=== PATIENT | female | born 1960 | race Caucasian/White ===

== ENCOUNTER 2019-05-08 12:47 | Inpatient (IN) | payer OTHER ==
[2019-05-08 16:02] VITALS: BMI 38.2
--- NOTE | 2019-05-08 16:56 | HP ---
CIWA Score Nausea/Vomitin Muscle Tremors: 1-None Visible, but [place] Anxiety: 2 Agitation: 2 Paroxysmal Sweats: 1-Minimal Palms Moist Orientation: 0-Oriented Tacttile Disturbances: 0-None Auditory Disturbances: 1-Very Mild Visual Disturbances: 1-Very Mild Sensitivity Headache: 2-Mild CIWA-Ar Total Score: 13 - Admission Criteria OASAS Guidelines: Admission for Medically Managed Detox: Requires at least one of the followin. CIWA greater than 12 2. Seizures within the past 24 hours 3. Delirium tremens within the past 24 hours 4. Hallucinations within the past 24 hours 5. Acute intervention needed for co occurring medical disorder 6. Acute intervention needed for co occurring psychiatric disorder 7. Severe withdrawal that cannot be handled at a lower level of care (continued vomiting, continued diarrhea, abnormal vital signs) requiring intravenous medication and/or fluids 8. Admission ROS S - HPI Chief Complaint: EtOH detox Allergies/Adverse Reactions: Allergies Allergy/AdvReac Type Severity Reaction Status Date / Time No Known Allergies Allergy Verified 05/08/19 15:45 History of Present Illness: 59F w/ HTN, depression, GERD, intermittent mild asthma, hemorrhoids, cirrhosis, HepC(s/p [place] tx), EtOH since 11y/o presents to [facility] for Alcohol detox. Drinks 24beers daily. Last drink was early afternoon. LOU 0.258. Tried detox x5- 6, last detox ~1year prior lasting a few days. No history of seizures. Has passed out. Has had fecal incontinence for last few months. Lives with , children. 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 Social smoker Exam Limitations: No Limitations - Ebola screening Have you traveled outside of the country in the last 21 days: No Have you had contact with anyone from an Ebola affected area: No - Review of Systems EENT: denies: Blurred Vision, Double Vision Respiratory: denies: Cough, Orthopnea, Wheezing Cardiac: denies: Chest Pain, Irregular Heart Rate, Lightheadedness, Palpitations , Chest Tightness GI: reports: Diarrhea, Nausea. denies: Constipated, Difficulty Swallowing, Rectal Bleeding, Vomiting : reports: Incontinence (urgency) Musculoskeletal: reports: Back Pain, Other (Left knee) Neuro: reports: Headache Endocrine: denies: Excessive Sweating Patient History - Patient Medical History Hx Asthma: Yes Hx Cancer: No Hx Hypertension: Yes Hx Hepatitis C: Yes (s/p [place]) - Patient Surgical History Hx Cholecystectomy: Yes - Smoking Cessation Smoking history: Current some day smoker Have you smoked in the past 12 months: Yes Aproximately how many cigarettes per day: 1 (social) Initiated information on smoking cessation: No - Substances abused Alcohol Substance route: Oral Frequency: Daily Amount used: (6) 160z beer Age of first use: 11 Date of last use: 05/08/19 Family Disease History - Family Disease History Family Disease History: Diabetes: Father (kidney disease), Mother (kidney disease), [place]: Brother Admission Physical Exam S - Vital Signs Vital Signs: Vital Signs - 24 hr 05/08/19 05/08/19 15:53 16:19 Temperature 97.3 F L 97.3 F L Pulse Rate 97 H 97 H Respiratory 20 20 Rate Blood Pressure 158/89 158/89 - Physical General Appearance: Yes: Nourished. No: No Apparent Distress, Mild Distress, Intoxicated, Sweating HEENTM: Yes: Normal Voice. No: Pale Conjunctivae R, Pale Conjunctivae L, Scleral Ictenus R, Scleral Ictenus L Respiratory: Yes: Lungs Clear, Normal Breath Sounds. No: Chest Non-Tender, Labored Respiration, No Accessory Muscle Use, Accessory Muscle Use, Wheezing Neck: Yes: Supple, Trachea in good position Cardiology: Yes: Regular Rhythm, Regular Rate, S1, S2. No: Tachycardia, Irregularly Irregular Abdominal: Yes: Soft. No: Distended, Rebound, Tenderness Musculoskeletal: Yes: full range of Motion. No: Joint swelling Neurological: Yes: Fully Oriented, Normal Response Integumentary: Yes: Normal Color, Dry, Warm Breathalyzer - Breathalyzer Breathalyzer: 258 Urine Drug Screen - Test Device Lot number: [id number] Expiration date: 02/10/21 - Control Is test valid?: Yes - Results Drug screen NEGATIVE: Yes Inpatient Rehab Admission - Rehab Decision to Admit Inpatient rehab admission?: No
[2019-05-08] MEDS ORDERED: PROCHLORPERAZINE MALEATE 5 MG TABLET PO PRN (17:26)
[2019-05-08] MEDS ORDERED: MAGNESIUM HYDROX 2400MG/30ML ORAL SUSPENSION 30 ML CUP PO PRN (17:26)
[2019-05-08] MEDS ORDERED: hydrOXYzine PAMOATE 25 MG CAPSULE (FP) PO PRN (17:26)
[2019-05-08] MEDS ORDERED: MAGNESIUM CITRATE 300 ML BOTTLE PO PRN (17:26)
[2019-05-08] MEDS ORDERED: MENTHOL/PHENOL 1 EACH UD MM PRN (17:26)
[2019-05-08] MEDS ORDERED: ACETAMINOPHEN 325 MG TABLET (FP) PO PRN ×2 (17:26)
[2019-05-08] MEDS ORDERED: IBUPROFEN 400 MG TABLET (FP) PO PRN (17:26)
[2019-05-08] MEDS ORDERED: LORazepam 1 MG TABLET PO PRN (17:26)
[2019-05-08] MEDS ORDERED: MAG HYDROX/AL HYDROX/SIMETH 30 ML UNIT-DOSE CUP PO PRN (17:26)
[2019-05-08] MEDS ORDERED: BISMUTH SUBSALICYLATE 524 MG/30 ML UD PO PRN (17:26)
[2019-05-08] MEDS ORDERED: METHOCARBAMOL 500 MG TABLET PO PRN (17:26)
[2019-05-08] MEDS ORDERED: MELATONIN 5 MG TABLETS PO PRN (17:26)
[2019-05-08] MEDS ORDERED: ALBUTEROL SO4 8 GM HFA INHALER IH PRN (17:37)
--- NOTE | 2019-05-08 17:43 | PN ---
Teaching Attending Note Name of Resident: Thaddeus Vickers ATTENDING PHYSICIAN STATEMENT I saw and evaluated the patient. I reviewed the resident's note and discussed the case with the resident. I agree with the resident's findings and plan as documented. SUBJECTIVE: etoh withdrawal OBJECTIVE: etoh withdrawal ASSESSMENT AND PLAN: ativan taper
[2019-05-08] MEDS ORDERED: PANTOPRAZOLE 20 MG TABLET (FP) PO ONE (18:30)
[2019-05-08] MEDS: LORazepam 2 MG TABLET PO SCH ×2 (19:19→22:43)
[2019-05-08] MEDS: THIAMINE HCL 100 MG TABLET (FP) PO SCH (22:43)
[2019-05-09] MEDS: LORazepam 2 MG TABLET PO SCH ×4 (06:07→22:26)
--- NOTE | 2019-05-09 09:28 | CONSULT ---
[facility] Psychiatric Consult - Data Date of interview: 05/09/19 Admission source: [facility] Identifying data: Patient is a 59 year old female, mother of eight, domiciled, and currently employed. This is patient's first admission to detox. Patient admitted to detox for alcohol dependence. Substance Abuse History: - Smoking Cessation. Smoking history: Current some day smoker. Have you smoked in the past 12 months: Yes. Aproximately how many cigarettes per day: 1 (social). Initiated information on smoking cessation: No. - Substances abused. Alcohol. Substance route: Oral. Frequency: Daily. Amount used: (6) 160z beer. Age of first use: 11. Date of last use: Medical History: HTN, depression, GERD, intermittent mild asthma, hemorrhoids, cirrhosis, Hep C Psychiatric History: Patient denies h/o psychiatric hospitalization and denies suicde attempt. Patient's first psychiatric contact was in her 30's to address her history of depression and alcohol use disorder and was provided with a sleep aid and psychotherapy. She reports seeing multiple psychiatrist througout the years. She denies current outpatient psychiatric care. Ms. Amaya last saw a psychiatrist while in detox at [facility] and was prscribed trazodone. At present she reports feeling sad and is experiencing difficutly sleeping. Physical/Sexual Abuse/Trauma History: denies. Mental Status Exam - Mental Status Exam Alert and Oriented to: Time, Place, Person Cognitive Function: Good Patient Appearance: Well Groomed Mood: Sad Affect: Appropriate Patient Behavior: Crying (Tearful when discussing her family. ) Speech Pattern: Appropriate Voice Loudness: Normal Thought Process: Goal Oriented Thought Disorder: Not Present Hallucinations: Denies Suicidal Ideation: Denies Homicidal Ideation: Denies Insight/Judgement: Poor Sleep: Poorly Appetite: Fair Muscle strength/Tone: Normal Gait/Station: Normal Psychiatric Findings - Problem List ([place] 1, 2,3) (1) Alcohol dependence with withdrawal Current Visit: Yes Status: Acute (2) Alcohol-induced sleep disorder Current Visit: Yes Status: Acute - Initial Treatment Plan Initial Treatment Plan: Psychoeducation provided. Detoxification in progress. Will order Trazodone 50mg HS. Benefits and side effects discussed. Verbal consent given.
[2019-05-09] MEDS: PRENATAL VITAMINS W/ FOLIC ACID TABLET (FP) PO SCH (10:45)
[2019-05-09 11:50] LABS: HEMATOCRIT 37.6 % (32.4-45.2); HEMOGLOBIN 12.8 GM/dL (10.7-15.3); MCH 30.3 pg (25.7-33.7); MEAN CELL VOLUME 89.1 fl (80-96); MEAN PLT VOLUME 8.1 fl (7.5-11.1); RBC 4.22 M/mm3 (3.60-5.2); RDW 14.9 % (11.6-15.6)
--- NOTE | 2019-05-09 11:59 | PN ---
[facility] CIWA - CIWA Score Nausea/Vomitin-Mild Nausea/No Vomiting Muscle Tremors: 3 Anxiety: 3 Agitation: 3 Paroxysmal Sweats: 2 Orientation: 0-Oriented Tacttile Disturbances: 0-None Auditory Disturbances: 0-None Visual Disturbances: 0-None Headache: 0-None Present CIWA-Ar Total Score: 12 S Progress Note (SOAP) Subjective: 59 years old female admitted on 05/08/19 for alcohol withdrawal sx management doing well with ativan detox regimen less tremor mild anxiety c/o acid reflux discontinue motrin begin zantace 150 mg po bid Objective: 05/09/19 12:02 Vital Signs Temperature 98.7 F 05/09/19 09:21 Pulse Rate 106 H 05/09/19 09:21 Respiratory Rate 18 05/09/19 09:21 Blood Pressure 162/102 H 05/09/19 09:21 O2 Sat by Pulse Oximetry (%) 05/09/19 12:02 lab pending denies history of hypertension begin amlodipin 10 mg po daily Assessment: 05/09/19 12:03 alcohol withdrawal sx alert oriented x 3 speech clearly denies chest pain denies weakness of extremities Plan: continue ativan detox regimen zantac 150 mg po bid amlopidine 10 mg po daily
[2019-05-09] MEDS ORDERED: ONDANSETRON *ODT* 4 MG TABLET SL PRN (12:00)
[2019-05-09 12:27] LABS: ALBUMIN 3.1 g/dl (3.4-5.0); BILIRUBIN,TOTAL 0.8 mg/dL (0.2-1); BLOOD UREA NITROGEN 9.3 mg/dL (7-18); CALCIUM 8.4 mg/dL (8.5-10.1); CREATININE 0.6 mg/dL (0.55-1.3); POTASSIUM 3.7 mmol/L (3.5-5.1); TOT PROT 7.3 g/dl (6.4-8.2)
[2019-05-09] MEDS: amLODIPine BESYLATE 10 MG TABLET (FP) PO SCH (12:36)
[2019-05-09] MEDS: RANITIDINE HCL 150 MG TABLET (FP) PO SCH ×2 (12:36→22:26)
[2019-05-09 12:55] LABS: PLATELET COUNT 32 K/MM3 (134-434); WHITE BLOOD COUNT 1.8 K/mm3 (4.0-10.0)
[2019-05-09] MEDS: GABAPENTIN 100 MG CAPSULE (FP) PO SCH ×2 (14:04→22:25)
[2019-05-09] MEDS ORDERED: traZODone HCL 50 MG TABLET (FP) PO SCH (22:00)
[2019-05-09] MEDS: traZODone HCL 50 MG TABLET (FP) PO SCH (22:25)
[2019-05-09] MEDS: THIAMINE HCL 100 MG TABLET (FP) PO SCH (22:26)
[2019-05-10] MEDS: GABAPENTIN 100 MG CAPSULE (FP) PO SCH ×3 (05:49→21:25)
[2019-05-10] MEDS: LORazepam 1 MG TABLET PO SCH ×4 (05:49→22:10)
[2019-05-10] MEDS: PRENATAL VITAMINS W/ FOLIC ACID TABLET (FP) PO SCH (10:09)
[2019-05-10] MEDS: RANITIDINE HCL 150 MG TABLET (FP) PO SCH ×2 (10:09→21:25)
[2019-05-10] MEDS: amLODIPine BESYLATE 10 MG TABLET (FP) PO SCH (10:09)
[2019-05-10 10:15] LABS: HEMATOCRIT 38.1 % (32.4-45.2); HEMOGLOBIN 12.8 GM/dL (10.7-15.3); MCHC 33.6 g/dl (32.0-36.0); MEAN CELL VOLUME 89.3 fl (80-96); MEAN PLT VOLUME 8.4 fl (7.5-11.1); RBC 4.27 M/mm3 (3.60-5.2); RDW 14.4 % (11.6-15.6)
[2019-05-10 10:20] LABS: PLATELET COUNT 29 K/MM3 (134-434); WHITE BLOOD COUNT 1.8 K/mm3 (4.0-10.0)
--- NOTE | 2019-05-10 11:24 | PN ---
[facility] CIWA - CIWA Score Nausea/Vomitin-No Nausea/No Vomiting Muscle Tremors: 2 Anxiety: 3 Agitation: 2 Paroxysmal Sweats: 1-Minimal Palms Moist Orientation: 0-Oriented Tacttile Disturbances: 0-None Auditory Disturbances: 0-None Visual Disturbances: 0-None Headache: 0-None Present CIWA-Ar Total Score: 8 S Progress Note (SOAP) Subjective: doing well with ativan detox regimen long history of hepatitis c treated 2018 completed 3 months trail primary care provider in [place] appointment 05/16/19 for GI endoscopy due to "GERD" denies vomit blood but unpleasant acid regurgitation Objective: 05/10/19 11:24 Vital Signs Temperature 98.2 F 05/10/19 09:14 Pulse Rate 89 05/10/19 09:14 Respiratory Rate 18 05/10/19 09:14 Blood Pressure 151/98 05/10/19 09:14 O2 Sat by Pulse Oximetry (%) Laboratory Last Values long history of bp elevation non compliance with dietary and medication begin amlodipine and lisinorpil WBC 1.8 K/mm3 (4.0-10.0) L* 05/10/19 07:00 RBC 4.27 M/mm3 (3.60-5.2) 05/10/19 07:00 Hgb 12.8 GM/dL (10.7-15.3) 05/10/19 07:00 Hct 38.1 % (32.4-45.2) 05/10/19 07:00 MCV 89.3 fl (80-96) 05/10/19 07:00 MCH 30.0 pg (25.7-33.7) 05/10/19 07:00 MCHC 33.6 g/dl (32.0-36.0) 05/10/19 07:00 RDW 14.4 % (11.6-15.6) 05/10/19 07:00 Plt Count 29 K/MM3 (134-434) L* 05/10/19 07:00 MPV 8.4 fl (7.5-11.1) 05/10/19 07:00 Sodium 143 mmol/L (136-145) 05/09/19 07:30 Potassium 3.7 mmol/L (3.5-5.1) 05/09/19 07:30 Chloride 106 mmol/L (98-107) 05/09/19 07:30 Carbon Dioxide 28 mmol/L (21-32) 05/09/19 07:30 Anion Gap 9 MMOL/L (8-16) 05/09/19 07:30 BUN 9.3 mg/dL (7-18) 05/09/19 07:30 Creatinine 0.6 mg/dL (0.55-1.3) 05/09/19 07:30 Est GFR (CKD-EPI)AfAm 117.27 05/09/19 07:30 Est GFR (CKD-EPI)NonAf 101.18 05/09/19 07:30 Random Glucose 81 mg/dL (74-106) 05/09/19 07:30 Calcium 8.4 mg/dL (8.5-10.1) L 05/09/19 07:30 Total Bilirubin 0.8 mg/dL (0.2-1) 05/09/19 07:30 AST 88 U/L (15-37) H 05/09/19 07:30 ALT 59 U/L (13-61) 05/09/19 07:30 Alkaline Phosphatase 129 U/L (45-117) H 05/09/19 07:30 Total Protein 7.3 g/dl (6.4-8.2) 05/09/19 07:30 Albumin 3.1 g/dl (3.4-5.0) L 05/09/19 07:30 RPR Titer Nonreactive (NONREACTIVE) 05/09/19 07:30 lab noted 05/10/19 11:27 low wbc asymptomatic, no fever, no coughing, no vomiting blood by history, denies trouble urination, tolerate food and fluid well denies abdominal discomfort low plt discontinue motrin reporting long history of low plt "on and off" denies gum bleeding no bruises noted 05/10/19 11:28 Assessment: 05/10/19 11:30 alcohol withdrawal sx alert oriented x 3 CII-VIII grossly intact no trouble chewing food nor swallowing speech clearly ambulating from bed to bathroom steady gait denies dizziness Plan: continue ativan detox regimen
--- NOTE | 2019-05-10 12:14 | EKG ---
Test Reason : Blood Pressure : / mmHG Vent. Rate : 087 BPM Atrial Rate : 087 BPM P-R Int : 184 ms QRS Dur : 096 ms QT Int : 390 ms P-R-T Axes : 061 020 047 degrees QTc Int : 469 ms POOR DATA QUALITY, INTERPRETATION MAY BE ADVERSELY AFFECTED NORMAL SINUS RHYTHM NORMAL ECG NO PREVIOUS ECGS AVAILABLE Confirmed by RUBY BARKER MD ([id number]) on 05/10/2019 12:14:10 PM Referred By: BAKARI Confirmed By:RUBY BARKER MD
[2019-05-10] MEDS: LISINOPRIL 10 MG TABLET (FP) PO SCH (12:43)
[2019-05-10] MEDS: traZODone HCL 50 MG TABLET (FP) PO SCH (21:25)
[2019-05-10] MEDS: THIAMINE HCL 100 MG TABLET (FP) PO SCH (21:25)
[2019-05-11] MEDS ORDERED: LORazepam 0.5 MG TABLET PO PRN
[2019-05-11] MEDS: LORazepam 0.5 MG TABLET PO SCH ×4 (05:53→22:28)
[2019-05-11] MEDS: GABAPENTIN 100 MG CAPSULE (FP) PO SCH ×3 (05:53→22:29)
[2019-05-11] MEDS: amLODIPine BESYLATE 10 MG TABLET (FP) PO SCH (10:20)
[2019-05-11] MEDS: LISINOPRIL 10 MG TABLET (FP) PO SCH (10:20)
[2019-05-11] MEDS: PRENATAL VITAMINS W/ FOLIC ACID TABLET (FP) PO SCH (10:21)
[2019-05-11] MEDS: RANITIDINE HCL 150 MG TABLET (FP) PO SCH ×2 (10:21→22:30)
--- NOTE | 2019-05-11 13:56 | PN ---
[facility] CIWA - CIWA Score Nausea/Vomitin-No Nausea/No Vomiting Muscle Tremors: 1-None Visible, but [place] Anxiety: 1-Mildly Anxious Agitation: 1-Slight > Activity Paroxysmal Sweats: No Perspiration Orientation: 0-Oriented Tacttile Disturbances: 0-None Auditory Disturbances: 0-None Visual Disturbances: 0-None Headache: 1-Very Mild CIWA-Ar Total Score: 4 [facility] Progress Note (SOAP) Subjective: alert,irritable,interrupted sleep,normal bowel movement Objective: 05/11/19 13:52 Vital Signs Temperature 97.2 F L 05/11/19 13:16 Pulse Rate 84 05/11/19 13:16 Respiratory Rate 18 05/11/19 13:16 Blood Pressure 148/90 05/11/19 13:16 O2 Sat by Pulse Oximetry (%) Assessment: 05/11/19 13:52 withdrawal symptom Plan: continue detox ativan regimen,stated has chronic leukopenia and thrombocytopenia ,has been follow up with specialist will see her PMD upon discharge,also advise to to nearest er if any emergency problem
[2019-05-11] MEDS: traZODone HCL 50 MG TABLET (FP) PO SCH (22:29)
[2019-05-11] MEDS: THIAMINE HCL 100 MG TABLET (FP) PO SCH (22:30)
[2019-05-12] MEDS ORDERED: LORazepam 0.5 MG TABLET PO ONE (05:00)
[2019-05-12] MEDS: GABAPENTIN 100 MG CAPSULE (FP) PO SCH (05:59)
[2019-05-12 06:35] VITALS: BP 115/65; PULSE 79; TEMP 97.1
--- NOTE | 2019-05-12 09:00 | PN ---
[facility] CIWA - CIWA Score Nausea/Vomitin-No Nausea/No Vomiting Muscle Tremors: 1-None Visible, but [place] Anxiety: 0-No Anxiety, at Ease Agitation: 0-Normal Activity Paroxysmal Sweats: No Perspiration Orientation: 0-Oriented Tacttile Disturbances: 0-None Auditory Disturbances: 0-None Visual Disturbances: 0-None Headache: 0-None Present CIWA-Ar Total Score: 1 S Progress Note (SOAP) Subjective: alert,no complaint Objective: 05/12/19 08:58 Vital Signs Temperature 97.1 F L 05/12/19 06:35 Pulse Rate 79 05/12/19 06:35 Respiratory Rate 18 05/12/19 06:35 Blood Pressure 115/65 05/12/19 06:35 O2 Sat by Pulse Oximetry (%) Assessment: 05/12/19 08:58 detox completed,no withdrawal symptom Plan: discharge today,follow up with after care program as arrangement and follow up with PMD for leukopenia and thrombocytopenia
--- NOTE | 2019-05-12 09:06 | DS ---
[facility] Detox Discharge Summary Admission Date: 05/08/19 Discharge Date: 05/12/19 - History Present History: Alcohol Dependence Additional Comments: follow up with PMD for leukopenia and thrombocytopenia upon discharged,to go to nearest [facility] room if any emergency problem Pertinent Past History: cirrhosis hepatitis c treated leukopenia thrombocytopenia - Physical Exam Results Vital Signs: Vital Signs Temperature 97.1 F L 05/12/19 06:35 Pulse Rate 79 05/12/19 06:35 Respiratory Rate 18 05/12/19 06:35 Blood Pressure 115/65 05/12/19 06:35 O2 Sat by Pulse Oximetry (%) Pertinent Admission Physical Exam Findings: withdrawal signs and symptom Laboratory Last Values WBC 1.8 K/mm3 (4.0-10.0) L* 05/10/19 07:00 RBC 4.27 M/mm3 (3.60-5.2) 05/10/19 07:00 Hgb 12.8 GM/dL (10.7-15.3) 05/10/19 07:00 Hct 38.1 % (32.4-45.2) 05/10/19 07:00 MCV 89.3 fl (80-96) 05/10/19 07:00 MCH 30.0 pg (25.7-33.7) 05/10/19 07:00 MCHC 33.6 g/dl (32.0-36.0) 05/10/19 07:00 RDW 14.4 % (11.6-15.6) 05/10/19 07:00 Plt Count 29 K/MM3 (134-434) L* 05/10/19 07:00 MPV 8.4 fl (7.5-11.1) 05/10/19 07:00 Sodium 143 mmol/L (136-145) 05/09/19 07:30 Potassium 3.7 mmol/L (3.5-5.1) 05/09/19 07:30 Chloride 106 mmol/L (98-107) 05/09/19 07:30 Carbon Dioxide 28 mmol/L (21-32) 05/09/19 07:30 Anion Gap 9 MMOL/L (8-16) 05/09/19 07:30 BUN 9.3 mg/dL (7-18) 05/09/19 07:30 Creatinine 0.6 mg/dL (0.55-1.3) 05/09/19 07:30 Est GFR (CKD-EPI)AfAm 117.27 05/09/19 07:30 Est GFR (CKD-EPI)NonAf 101.18 05/09/19 07:30 Random Glucose 81 mg/dL (74-106) 05/09/19 07:30 Calcium 8.4 mg/dL (8.5-10.1) L 05/09/19 07:30 Total Bilirubin 0.8 mg/dL (0.2-1) 05/09/19 07:30 AST 88 U/L (15-37) H 05/09/19 07:30 ALT 59 U/L (13-61) 05/09/19 07:30 Alkaline Phosphatase 129 U/L (45-117) H 05/09/19 07:30 Total Protein 7.3 g/dl (6.4-8.2) 05/09/19 07:30 Albumin 3.1 g/dl (3.4-5.0) L 05/09/19 07:30 RPR Titer Nonreactive (NONREACTIVE) 05/09/19 07:30 - Treatment Hospital Course: Detox Protocol Followed, Detoxed Safely, Responded well, Discharged Condition Good Patient has Accepted a Rehab Referral to: declined - Medication Discharge Medications: Ambulatory Orders Albuterol Sulfate Inhaler - [Ventolin Hfa Inhaler -] 2 inh PO Q6H 05/08/19 Gabapentin [Neurontin -] 100 mg PO Q8H 05/08/19 Loperamide HCl [Loperamide] 4 mg PO PRN PRN 05/08/19 Naltrexone HCl 50 mg PO DAILY 05/08/19 Omeprazole 20 mg PO DAILY 05/08/19 Ranitidine [Zantac -] 150 mg PO BID 05/08/19 traZODone HCL [Trazodone HCl] 50 mg PO HS 05/08/19 - Diagnosis (1) Alcohol dependence with withdrawal Current Visit: Yes Status: Acute (2) Cirrhosis Current Visit: Yes Status: Acute (3) Hepatitis C Current Visit: Yes Status: Acute (4) Leukopenia Current Visit: Yes Status: Acute (5) Thrombocytopenia Current Visit: Yes Status: Acute - AMA Did Patient Leave Against Medical Advice: No
--- NOTE | 2019-05-12 09:10 | PN ---
[facility] Progress Note Note: patient has medications at home
== END 2019-05-12 09:15 | disposition home or self-care (01) | DRG 775 ==
LOC: YASAS 12:47 → Y3N 18:04
PROVIDERS: ADMIT Surgery; ATTEND Surgery
PROC: HZ2ZZZZ Detoxification Services for Substance Abuse Treatment (ICD-10-PCS; principal; 2019-05-08)
DX: F10.230 Alcohol dependence with withdrawal, uncomplicated (principal); F10.282 Alcohol dependence with alcohol-induced sleep disorder; D69.6 Thrombocytopenia, unspecified; D72.819 Decreased white blood cell count, unspecified; K74.60 Unspecified cirrhosis of liver; B19.20 Unspecified viral hepatitis C without hepatic coma
CPT/HCPCS: 36415; 80053; 85027; 86480; 86593; 93005; 93010